=== PATIENT | female | born 1985 | race African-American/Black ===

== ENCOUNTER 2016-12-18 12:59 | Emergency (ER) | payer OTHER ==
[~2016-12-18] VITALS: Ht 162.6 cm; Wt 9.0 kg
[~2016-12-18 12:59] MED LIST: HYDR-1348 PO; HYDROCHLOROTHIAZIDE
[2016-12-18] MEDS ORDERED: KETOROLAC 60MG/2ML VIAL IM ONE (19:15)
[2016-12-18 19:50] VITALS: BP 139/74
== END 2016-12-18 19:50 | disposition home or self-care (01) ==
LOC: ER 12:59
DX: H60.92 Unspecified otitis externa, left ear (principal); I10 Essential (primary) hypertension; J45.909 Unspecified asthma, uncomplicated
CPT/HCPCS: 96372; 99283; J1885

== ENCOUNTER 2018-04-12 13:49 | Emergency (ER) | payer OTHER ==
[~2018-04-12] VITALS: Ht 162.6 cm; Wt 107.0 kg
[2018-04-12 17:05] LABS: BASOPHILS % 0.5 % (0.0-2.0); EOSINOPHILS % 2.7 % (0.0-5.0); HEMATOCRIT. 38.3 % (36.0-48.0); HEMOGLOBIN. 12.9 g/dL (12.0-16.0); LYMPHOCYTES % 43.5 % (20.0-50.0); MEAN CORPUSCULAR HEMOGLOBIN 29.9 pg (28.0-32.0); MEAN CORPUSCULAR VOLUME 88.7 fL (81.0-99.0); MEAN PLATELET VOLUME 9.5 fl (7.4-10.4); MONOCYTES % 6.4 % (2.0-8.0); NEUTROPHILS % 46.9 % (40.0-76.0); PLATELET 238 x1000/uL (130-400); RED BLOOD CELL COUNT 4.33 mill/uL (4.2-5.4); RED CELL DISTRIBUTION WIDTH 13.3 % (11.6-14.6)
[2018-04-12 17:14] LABS: CHLORIDE 108 mEq/L (98-107)
[2018-04-12] MEDS ORDERED: IBUPROFEN 600MG TABLET PO ONE (17:45)
[2018-04-12 17:52] VITALS: BP 139/87
== END 2018-04-12 18:21 | disposition home or self-care (01) ==
LOC: ER 13:49
DX: R07.9 Chest pain, unspecified (principal); R05 Cough; F41.9 Anxiety disorder, unspecified; J45.909 Unspecified asthma, uncomplicated; I10 Essential (primary) hypertension; Z98.890 Other specified postprocedural states
CPT/HCPCS: 36415; 71045; 81025; 93005; 99284

== ENCOUNTER 2019-02-02 18:01 | Emergency (ER) | payer OTHER ==
[~2019-02-02] VITALS: Ht 162.6 cm; Wt 118.0 kg
[2019-02-02 20:45] VITALS: BP 139/81
[2019-02-02] MEDS ORDERED: BISACODYL 10MG SUPP PR ONE (21:00)
[2019-02-02] MEDS ORDERED: POLYETHYLENE GLYCOL 3350 (17GM) 1 DOSE PACK PO ONE (21:00)
== END 2019-02-02 22:29 | disposition home or self-care (01) ==
LOC: ER 18:01
DX: O26.891 Other specified pregnancy related conditions, first trimester (principal); K59.00 Constipation, unspecified; O16.1 Unspecified maternal hypertension, first trimester; Z3A.13 13 weeks gestation of pregnancy; Z98.890 Other specified postprocedural states
CPT/HCPCS: 99282; Z7610

== ENCOUNTER 2019-02-22 04:37 | Emergency (ER) | payer MEDICAID, OTHER ==
[~2019-02-22] VITALS: Ht 162.6 cm; Wt 114.0 kg
[2019-02-22] MEDS ORDERED: ONDANSETRON HCL 4MG/2ML INJ IV NR (05:29)
[2019-02-22] MEDS ORDERED: ACETAMINOPHEN 325MG TABLET PO NR (05:29)
[2019-02-22 05:32] LABS: CLARITY URINE CLEAR (CLEAR); COLOR URINE YELLOW (YELLOW); KETONES URINE 1+ (NEGATIVE); LEUKOCYTE ESTERASE URINE NEGATIVE (NEGATIVE); NITRITE URINE NEGATIVE (NEGATIVE); OCCULT BLOOD URINE NEGATIVE (NEGATIVE); PH URINE 5.5 (4.5-8.0); PROTEIN URINE NEGATIVE (NEGATIVE); SPECIFIC GRAVITY URINE 1.021 (1.005-1.030)
[2019-02-22] MEDS: SODIUM CHLORIDE 0.9% 1,000 ML IV NR ×3 (06:01→07:57)
[2019-02-22 06:04] LABS: BASOPHILS % 0.6 % (0.0-2.0); HEMATOCRIT. 33.8 % (36.0-48.0); HEMOGLOBIN. 11.6 g/dL (12.0-16.0); MEAN CORPUSCULAR HEMOGLOBIN 29.7 pg (28.0-32.0); MEAN CORPUSCULAR VOLUME 86.9 fL (81.0-99.0); MEAN PLATELET VOLUME 9.6 fl (7.4-10.4); MONOCYTES % 7.9 % (2.0-8.0); NEUTROPHILS % 66.5 % (40.0-76.0); PLATELET 236 x1000/uL (130-400); RED BLOOD CELL COUNT 3.89 mill/uL (4.2-5.4); RED CELL DISTRIBUTION WIDTH 13.1 % (11.6-14.6)
[2019-02-22 06:11] LABS: CHLORIDE 108 mEq/L (98-107)
[2019-02-22 08:13] VITALS: BP 145/92
== END 2019-02-22 08:20 | disposition home or self-care (01) ==
LOC: ER 04:37
DX: O26.892 Other specified pregnancy related conditions, second trimester (principal); K59.00 Constipation, unspecified; O21.9 Vomiting of pregnancy, unspecified; O16.2 Unspecified maternal hypertension, second trimester; Z3A.17 17 weeks gestation of pregnancy; Z98.890 Other specified postprocedural states
CPT/HCPCS: 36415; 76705; 76805; 76810; 80053; 81003; 81025; 83690; 84702; 85025; 96361; 96374; 99284; J2405; Z7610

== ENCOUNTER 2019-04-23 22:11 | Observation (INO) | payer MEDICAID ==
[2019-04-24] MEDS ORDERED: PROG100C10 MT (00:14)
[2019-05-15] MEDS ORDERED: ASPI-1497 PO (10:33)
== END 2019-04-24 00:20 | disposition home or self-care (01) ==
LOC: 8 EST LDRP 22:11
PROVIDERS: ADMIT Obstetrics & Gynecology; ATTEND Specialist
DX: O62.9 Abnormality of forces of labor, unspecified (principal); O30.002 Twin pregnancy, unspecified number of placenta and unspecified number of amniotic sacs, second trimester; Z3A.24 24 weeks gestation of pregnancy
CPT/HCPCS: 82962; 99281; G0378

== ENCOUNTER 2019-05-15 10:00 | Observation (INO) | payer MEDICAID ==
[~2019-05-15] VITALS: Ht 162.6 cm; Wt 117.9 kg
[~2019-05-15 10:00] MED LIST changes: +PROG100C10 MT
[2019-05-15] MEDS ORDERED: ASPI-1393 PO (10:33)
[2019-05-15] MEDS ORDERED: DOCU-138 PO (10:33)
== END 2019-05-15 14:15 | disposition home or self-care (01) ==
LOC: 8 EST LDRP 10:00
PROVIDERS: ADMIT Specialist; ATTEND Specialist
DX: O42.912 Preterm premature rupture of membranes, unspecified as to length of time between rupture and onset of labor, second trimester (principal); Z3A.27 27 weeks gestation of pregnancy
CPT/HCPCS: 76805; 76810; 82731; 99281; G0378

== ENCOUNTER → 2019-06-01 | Outpatient (CLI) | payer MEDICAID ==
[~2019-06-01] MED LIST changes: +ASPI-1497 PO; +DOCU-138 PO
== END | disposition home or self-care (01) ==
LOC: CARD 10:07
PROVIDERS: ATTEND Specialist
DX: I49.1 Atrial premature depolarization (principal)
CPT/HCPCS: 93306

== ENCOUNTER 2019-06-23 20:11 | Observation (INO) | payer MEDICAID ==
[~2019-06-23] VITALS: Ht 162.6 cm; Wt 127.0 kg
[2019-06-23] MEDS ORDERED: BETAMETHASONE ACET/BETAMET 30 MG/5 ML VIAL IM NR (20:45)
[2019-06-23 21:10] LABS: BASOPHILS % 0.9 % (0.0-2.0); EOSINOPHILS % 1.2 % (0.0-5.0); HEMATOCRIT. 31.2 % (36.0-48.0); HEMOGLOBIN. 10.1 g/dL (12.0-16.0); LYMPHOCYTES % 34.6 % (20.0-50.0); MEAN CORPUSCULAR VOLUME 83.2 fL (81.0-99.0); MEAN PLATELET VOLUME 9.9 fl (7.4-10.4); MONOCYTES % 9.4 % (2.0-8.0); NEUTROPHILS % 53.9 % (40.0-76.0); PLATELET 242 x1000/uL (130-400); RED BLOOD CELL COUNT 3.74 mill/uL (4.2-5.4); RED CELL DISTRIBUTION WIDTH 14.3 % (11.6-14.6)
[2019-06-23 21:15] LABS: CHLORIDE 110 mEq/L (98-107)
[2019-06-23 21:20] LABS: INR 0.9; PARTIAL THROMBOPLASTIN TIME 25.2 sec (23.4-31.0); PROTHROMBIN TIME 9.4 sec (9.6-11.0)
[2019-06-23 21:20] LABS: *AMPHETAMINES SCREEN URINE NEGATIVE (NEGATIVE); *BARBITURATES SCREEN URINE NEGATIVE (NEGATIVE); *BENZODIAZEPINES SCREEN URINE NEGATIVE (NEGATIVE); *COCAINE SCREEN URINE NEGATIVE (NEGATIVE); METHADONE URINE SCREEN NEGATIVE (NEGATIVE); OPIATES URINE SCREEN NEGATIVE (NEGATIVE)
[2019-06-23 21:21] LABS: CANNABINOID URINE SCREEN NEGATIVE (NEGATIVE); PHENCYCLIDINE URINE SCREEN NEGATIVE (NEGATIVE)
[2019-06-23 22:50] LABS: CLARITY URINE TURBID (CLEAR); COLOR URINE DARK YELLOW (YELLOW); KETONES URINE TRACE (NEGATIVE); LEUKOCYTE ESTERASE URINE NEGATIVE (NEGATIVE); NITRITE URINE NEGATIVE (NEGATIVE); OCCULT BLOOD URINE NEGATIVE (NEGATIVE); PH URINE 5.5 (4.5-8.0); PROTEIN URINE 1+ (NEGATIVE); SPECIFIC GRAVITY URINE 1.046 (1.005-1.030)
[2019-06-23] MEDS ORDERED: ACETAMINOPHEN 500MG TABLET PO PRN (23:15)
[2019-06-23] MEDS ORDERED: LABETALOL HCL 5MG/ML VIAL 20ML IV PRN ×3 (23:15)
[2019-06-23] MEDS ORDERED: HYDRALAZINE 20MG/ML VIAL IV PRN (23:15)
[2019-06-23 23:44] VITALS: BP 161/89
[2019-06-24] MEDS ORDERED: CITRIC ACID/SODIUM CITRATE SOLN 30ML UDC PO NR (00:15)
[2019-06-24] MEDS ORDERED: ONDANSETRON HCL 4MG/2ML INJ IV PRN (00:15)
[2019-06-24] MEDS ORDERED: ACETAMINOPHEN 500MG TABLET PO PRN (00:15)
[2019-06-24] MEDS ORDERED: CEFAZOLIN 2,000 MG in DEXT 5% WATER 100 ML IV SCH (00:15)
[2019-06-24] MEDS: LACTATED RINGERS 1,000 ML IV SCH ×3 (00:45→18:16)
[2019-06-24] MEDS ORDERED: PANTOPRAZOLE 80 MG in SODIUM CHLORIDE 0.9% 100 ML IV SCH (04:30)
[2019-06-24] MEDS: PANTOPRAZOLE SODIUM 40 MG/VIAL IV SCH ×2 (05:07→17:19)
[2019-06-24] MEDS: ACETAMINOPHEN 500MG TABLET PO PRN ×2 (05:28→18:04)
[2019-06-24 07:21] LABS: CHLORIDE 110 mEq/L (98-107); INR 0.9; PARTIAL THROMBOPLASTIN TIME 26.1 sec (23.4-31.0); PROTHROMBIN TIME 9.7 sec (9.6-11.0)
[2019-06-24 07:25] LABS: HEMATOCRIT. 27.9 % (36.0-48.0); HEMOGLOBIN. 9.2 g/dL (12.0-16.0); LYMPHOCYTES % 17.4 % (20.0-50.0); MEAN CORPUSCULAR HEMOGLOBIN 27.2 pg (28.0-32.0); MEAN CORPUSCULAR VOLUME 82.2 fL (81.0-99.0); MEAN PLATELET VOLUME 9.9 fl (7.4-10.4); MONOCYTES % 4.1 % (2.0-8.0); NEUTROPHILS % 78.5 % (40.0-76.0); PLATELET 217 x1000/uL (130-400)
[2019-06-24] MEDS ORDERED: BETAMETHASONE ACET/BETAMET 30 MG/5 ML VIAL IM NR (09:10)
[2019-06-24] MEDS ORDERED: CITRIC ACID/SODIUM CITRATE SOLN 30ML UDC PO PRN (09:30)
[2019-06-24 13:03] LABS: BASOPHILS % 0.1 % (0.0-2.0); HEMATOCRIT. 25.9 % (36.0-48.0); HEMOGLOBIN. 8.4 g/dL (12.0-16.0); LYMPHOCYTES % 16.8 % (20.0-50.0); MEAN CORPUSCULAR HEMOGLOBIN 26.9 pg (28.0-32.0); MEAN CORPUSCULAR VOLUME 82.6 fL (81.0-99.0); MEAN PLATELET VOLUME 9.7 fl (7.4-10.4); MONOCYTES % 3.6 % (2.0-8.0); NEUTROPHILS % 79.5 % (40.0-76.0); PLATELET 195 x1000/uL (130-400); RED BLOOD CELL COUNT 3.14 mill/uL (4.2-5.4); RED CELL DISTRIBUTION WIDTH 14.4 % (11.6-14.6)
[2019-06-24 13:06] LABS: CHLORIDE 109 mEq/L (98-107)
[2019-06-24 13:19] LABS: INR 0.9; PARTIAL THROMBOPLASTIN TIME 25.2 sec (23.4-31.0); PROTHROMBIN TIME 9.7 sec (9.6-11.0)
== END 2019-06-24 22:55 | disposition home or self-care (01) ==
LOC: 8 EST LDRP 20:11 → 8 EST A/PP 06-24 09:23
PROVIDERS: ADMIT Obstetrics & Gynecology; ATTEND Obstetrics & Gynecology
DX: O30.002 Twin pregnancy, unspecified number of placenta and unspecified number of amniotic sacs, second trimester (principal); O62.9 Abnormality of forces of labor, unspecified; Z3A.24 24 weeks gestation of pregnancy
CPT/HCPCS: 36415; 76815; 80053; 80305; 81003; 84156; 84550; 85025; 85384; 85610; 85730; 96365; 96372; 96375; 96376; 99281; C9113; G0378; J0690; J0702; J2405; J3490; J7060; J7120; 96360; 96361; A4315

== ENCOUNTER 2019-06-25 20:51 | Inpatient (IN) | payer MEDICAID ==
[~2019-06-25] VITALS: Ht 162.6 cm; Wt 127.0 kg
[~2019-06-25 20:51] MED LIST changes: -HYDR-1348 PO; -HYDROCHLOROTHIAZIDE
[2019-06-25 22:27] LABS: BASOPHILS % 0.1 % (0.0-2.0); EOSINOPHILS % 0.1 % (0.0-5.0); HEMATOCRIT. 26.1 % (36.0-48.0); HEMOGLOBIN. 8.4 g/dL (12.0-16.0); LYMPHOCYTES % 23.1 % (20.0-50.0); MEAN CORPUSCULAR HEMOGLOBIN 26.6 pg (28.0-32.0); MEAN PLATELET VOLUME 9.5 fl (7.4-10.4); MONOCYTES % 10.6 % (2.0-8.0); NEUTROPHILS % 66.1 % (40.0-76.0); PLATELET 222 x1000/uL (130-400); RED BLOOD CELL COUNT 3.14 mill/uL (4.2-5.4); RED CELL DISTRIBUTION WIDTH 14.4 % (11.6-14.6)
[2019-06-25 22:32] LABS: INR 0.9; PARTIAL THROMBOPLASTIN TIME 22.5 sec (23.4-31.0); PROTHROMBIN TIME 9.2 sec (9.6-11.0)
[2019-06-25 22:33] LABS: CHLORIDE 109 mEq/L (98-107)
[2019-06-25] MEDS ORDERED: HYDRALAZINE 20MG/ML VIAL IV PRN (23:30)
[2019-06-25] MEDS ORDERED: MAGNESIUM 4 G PREMIX 100 ML IV SCH (23:30)
[2019-06-25] MEDS ORDERED: LABETALOL HCL 5MG/ML VIAL 20ML IV PRN ×4 (23:30→23:45)
[2019-06-25] MEDS ORDERED: MAGNESIUM SULFATE 20 GM in DEXT 5% WATER 460 ML IV ONE (23:45)
[2019-06-25] MEDS ORDERED: LACTATED RINGERS 1,000 ML IV SCH (23:45)
[2019-06-26 00:05] VITALS: BP 159/106
[2019-06-26 01:33] LABS: CLARITY URINE CLEAR (CLEAR); COLOR URINE YELLOW (YELLOW); KETONES URINE NEGATIVE (NEGATIVE); LEUKOCYTE ESTERASE URINE TRACE (NEGATIVE); NITRITE URINE NEGATIVE (NEGATIVE); OCCULT BLOOD URINE NEGATIVE (NEGATIVE); PH URINE 6.5 (4.5-8.0); PROTEIN URINE NEGATIVE (NEGATIVE); SPECIFIC GRAVITY URINE 1.008 (1.005-1.030); UROBILINOGEN URINE 0.2 E.U./dL (0.2-1.0)
[2019-06-26 01:45] LABS: *AMPHETAMINES SCREEN URINE NEGATIVE (NEGATIVE)
[2019-06-26 01:46] LABS: *BARBITURATES SCREEN URINE NEGATIVE (NEGATIVE); *BENZODIAZEPINES SCREEN URINE NEGATIVE (NEGATIVE); *COCAINE SCREEN URINE NEGATIVE (NEGATIVE); METHADONE URINE SCREEN NEGATIVE (NEGATIVE); OPIATES URINE SCREEN NEGATIVE (NEGATIVE); PHENCYCLIDINE URINE SCREEN NEGATIVE (NEGATIVE)
[2019-06-26 01:47] LABS: CANNABINOID URINE SCREEN NEGATIVE (NEGATIVE)
[2019-06-26] MEDS ORDERED: ACETAMINOPHEN 500MG TABLET PO NR (02:45)
[2019-06-26 04:24] LABS: BASOPHILS % 0.2 % (0.0-2.0); EOSINOPHILS % 0.1 % (0.0-5.0); HEMATOCRIT. 25.6 % (36.0-48.0); HEMOGLOBIN. 8.3 g/dL (12.0-16.0); LYMPHOCYTES % 25.6 % (20.0-50.0); MEAN CORPUSCULAR HEMOGLOBIN 26.8 pg (28.0-32.0); MEAN PLATELET VOLUME 9.6 fl (7.4-10.4); MONOCYTES % 10.2 % (2.0-8.0); NEUTROPHILS % 63.9 % (40.0-76.0); PLATELET 209 x1000/uL (130-400); RED BLOOD CELL COUNT 3.09 mill/uL (4.2-5.4); RED CELL DISTRIBUTION WIDTH 14.3 % (11.6-14.6)
[2019-06-26 04:33] LABS: CHLORIDE 110 mEq/L (98-107)
[2019-06-26 04:37] LABS: D-DIMER 2.11 mg/L FEU (<0.50); INR 0.9; PARTIAL THROMBOPLASTIN TIME 23.3 sec (23.4-31.0); PROTHROMBIN TIME 9.1 sec (9.6-11.0)
[2019-06-26] MEDS: ACETAMINOPHEN 500MG TABLET PO PRN ×4 (08:55→21:41)
[2019-06-26] MEDS ORDERED: PRENATAL VIT/FE FUMARATE/FA TABLET PO SCH (09:00)
[2019-06-26] MEDS ORDERED: PANTOPRAZOLE SODIUM 40 MG/VIAL IV PRN (09:00)
[2019-06-26] MEDS ORDERED: MAGNESIUM 20 G PREMIX (L & D) 500 ML IV SCH (11:30)
[2019-06-26] MEDS ORDERED: MAGNESIUM SULFATE 20 GM in DEXT 5% WATER 460 ML IV SCH (12:00)
[2019-06-26] MEDS: DEXT 5%/LACTATED RINGERS 1,000 ML IV SCH (17:15)
[2019-06-26] MEDS: DOCUSATE SODIUM 100MG CAPSULE PO SCH (17:38)
[2019-06-26] MEDS: FERROUS SULFATE 325MG TABLET PO SCH (17:39)
[2019-06-27] MEDS: DEXT 5%/LACTATED RINGERS 1,000 ML IV SCH (02:13)
[2019-06-27] MEDS: FERROUS SULFATE 325MG TABLET PO SCH (02:15)
[2019-06-27] MEDS: ACETAMINOPHEN 500MG TABLET PO PRN (04:41)
[2019-06-27] MEDS: DOCUSATE SODIUM 100MG CAPSULE PO SCH (05:24)
== END 2019-06-27 08:10 | disposition home or self-care (01) | DRG 566 ==
LOC: OBSVTOIN 20:51 → 8 EST LDRP 20:51 → 8 EST A/PP 06-26 03:30 → 8 EST LDRP 06-26 08:32
PROVIDERS: ADMIT Obstetrics & Gynecology; ATTEND Obstetrics & Gynecology
DX: O99.013 Anemia complicating pregnancy, third trimester (principal); O16.3 Unspecified maternal hypertension, third trimester; E66.9 Obesity, unspecified; D64.9 Anemia, unspecified; O99.213 Obesity complicating pregnancy, third trimester; O30.003 Twin pregnancy, unspecified number of placenta and unspecified number of amniotic sacs, third trimester; Z3A.33 33 weeks gestation of pregnancy; Z79.899 Other long term (current) drug therapy; Z79.82 Long term (current) use of aspirin; Z91.040 Latex allergy status; Z98.891 History of uterine scar from previous surgery
CPT/HCPCS: 36415; 76805; 76810; 76818; 80053; 80305; 81003; 83735; 84550; 85025; 85379; 85384; 86592; 86703; 86762; 86850; 86900; 87340; 96372; 99281; G0378; J3475; J3490; J7060; J7120

== ENCOUNTER 2019-06-28 16:32 | Inpatient (IN) | payer MEDICAID ==
[~2019-06-28] VITALS: Ht 162.6 cm; Wt 136.1 kg
[2019-06-28] MEDS ORDERED: DEXT 5%/LR + PITOCIN 20UNITS/L 1,000 ML IV SCH ×2 (17:00→20:34)
[2019-06-28] MEDS ORDERED: CARBOPROST TROMETHAMINE 250 MCG/ML AMPUL IM PRN (17:00)
[2019-06-28] MEDS ORDERED: MISOPROSTOL 100MCG TABLET VG SCH (17:00)
[2019-06-28] MEDS ORDERED: NALOXONE HCL 0.4 MG/ML 1ML VIAL IM PRN (17:00)
[2019-06-28] MEDS ORDERED: PANTOPRAZOLE SODIUM 40 MG/VIAL IV NR (17:15)
[2019-06-28] MEDS ORDERED: FUROSEMIDE 20MG/2ML VIAL IVP NR (17:30)
[2019-06-28] MEDS: LACTATED RINGERS 1,000 ML IV SCH (17:34)
[2019-06-28] MEDS ORDERED: CITRIC ACID/SODIUM CITRATE SOLN 30ML UDC PO NR (17:45)
[2019-06-28] MEDS ORDERED: MORPHINE SULFATE/PF 1MG/ML 10ML AMP ONE (18:00)
[2019-06-28] MEDS ORDERED: FENTANYL CITRATE/PF 50MCG/ML 2ML VIAL ONE (18:00)
[2019-06-28 18:01] LABS: CLARITY URINE CLOUDY (CLEAR); COLOR URINE YELLOW (YELLOW); KETONES URINE NEGATIVE (NEGATIVE); LEUKOCYTE ESTERASE URINE 3+ (NEGATIVE); NITRITE URINE NEGATIVE (NEGATIVE); OCCULT BLOOD URINE NEGATIVE (NEGATIVE); PH URINE 6.5 (4.5-8.0); PROTEIN URINE 1+ (NEGATIVE); UROBILINOGEN URINE 0.2 E.U./dL (0.2-1.0)
[2019-06-28] MEDS ORDERED: ONDANSETRON HCL 4MG/2ML INJ ONE (18:01)
[2019-06-28] MEDS ORDERED: METOCLOPRAMIDE HCL 10MG/2ML VIAL ONE (18:01)
[2019-06-28] MEDS ORDERED: CEFAZOLIN SODIUM 1000MG/VIAL ONE (18:01)
[2019-06-28] MEDS ORDERED: EPHEDRINE SULFATE 50MG/ML VIAL ONE (18:01)
[2019-06-28] MEDS ORDERED: OXYTOCIN 10 UNITS/ML 1ML ONE (18:01)
[2019-06-28] MEDS ORDERED: GLYCOPYRROLATE 0.2 MG/ML 2ML VIAL ONE (18:01)
[2019-06-28] MEDS ORDERED: SODIUM CHLORIDE 0.9% 10ML VIAL ONE (18:07)
[2019-06-28 18:08] LABS: BASOPHILS % 0.3 % (0.0-2.0); EOSINOPHILS % 1.2 % (0.0-5.0); HEMATOCRIT. 27.4 % (36.0-48.0); HEMOGLOBIN. 8.8 g/dL (12.0-16.0); LYMPHOCYTES % 26.8 % (20.0-50.0); MEAN CORPUSCULAR HEMOGLOBIN 26.9 pg (28.0-32.0); MEAN CORPUSCULAR VOLUME 83.4 fL (81.0-99.0); MEAN PLATELET VOLUME 9.4 fl (7.4-10.4); MONOCYTES % 10.2 % (2.0-8.0); NEUTROPHILS % 61.5 % (40.0-76.0); PLATELET 224 x1000/uL (130-400); RED BLOOD CELL COUNT 3.29 mill/uL (4.2-5.4); RED CELL DISTRIBUTION WIDTH 14.6 % (11.6-14.6)
[2019-06-28 18:09] LABS: CHLORIDE 112 mEq/L (98-107)
[2019-06-28 18:16] LABS: INR 0.9; PARTIAL THROMBOPLASTIN TIME 26.1 sec (23.4-31.0); PROTHROMBIN TIME 9.6 sec (9.6-11.0)
[2019-06-28 18:16] LABS: *AMPHETAMINES SCREEN URINE NEGATIVE (NEGATIVE); *BARBITURATES SCREEN URINE NEGATIVE (NEGATIVE); *BENZODIAZEPINES SCREEN URINE NEGATIVE (NEGATIVE); *COCAINE SCREEN URINE NEGATIVE (NEGATIVE); METHADONE URINE SCREEN NEGATIVE (NEGATIVE); OPIATES URINE SCREEN NEGATIVE (NEGATIVE)
[2019-06-28 18:17] LABS: CANNABINOID URINE SCREEN NEGATIVE (NEGATIVE); PHENCYCLIDINE URINE SCREEN NEGATIVE (NEGATIVE)
[2019-06-28] MEDS ORDERED: LABETALOL 5MG/ML SYR 20 MG/4 ML SYRINGE IV NR (18:30)
[2019-06-28] MEDS ORDERED: DIPHENHYDRAMINE 50MG/ML VIAL ONE (19:40)
[2019-06-28] MEDS ORDERED: KETOROLAC 60MG/2ML VIAL IM ONE (19:42)
[2019-06-28] MEDS ORDERED: LANOLIN OINT 7GM TUBE TOP PRN (20:45)
[2019-06-28] MEDS ORDERED: HYDROCODONE/ACETAMINOPHEN 5/325MG TABLET PO PRN ×2 (20:45)
[2019-06-28] MEDS ORDERED: RHO(D) IMMUNE GLOBULIN 300 MCG/SYR IM PRN (20:45)
[2019-06-28] MEDS ORDERED: ONDANSETRON HCL 4MG/2ML INJ IV PRN (20:45)
[2019-06-28] MEDS ORDERED: NALOXONE HCL 0.4 MG/ML 1ML VIAL IV PRN (21:00)
[2019-06-28] MEDS ORDERED: DIPHENHYDRAMINE 50MG/ML VIAL IV PRN (21:00)
[2019-06-28] MEDS ORDERED: BUTORPHANOL TARTRATE 2 MG/ML VIAL IV PRN (21:00)
[2019-06-28] MEDS ORDERED: DIPHENHYDRAMINE 25MG CAPSULE PO PRN (21:00)
[2019-06-29] VITALS (7 sets, daily range): BP systolic 132–155; BP diastolic 71–107
[2019-06-29 07:29] LABS: BASOPHILS % 0.4 % (0.0-2.0); EOSINOPHILS % 0.6 % (0.0-5.0); HEMATOCRIT. 24.2 % (36.0-48.0); HEMOGLOBIN. 7.9 g/dL (12.0-16.0); LYMPHOCYTES % 23.7 % (20.0-50.0); MEAN CORPUSCULAR HEMOGLOBIN 27.3 pg (28.0-32.0); MEAN CORPUSCULAR VOLUME 83.5 fL (81.0-99.0); MEAN PLATELET VOLUME 9.7 fl (7.4-10.4); MONOCYTES % 10.5 % (2.0-8.0); NEUTROPHILS % 64.8 % (40.0-76.0); PLATELET 193 x1000/uL (130-400); RED CELL DISTRIBUTION WIDTH 14.3 % (11.6-14.6)
[2019-06-29] MEDS: KETOROLAC 30MG/ML VIAL IV SCH ×2 (08:40→19:50)
[2019-06-29] MEDS: PRENATAL VIT/FE FUMARATE/FA TABLET PO SCH (08:40)
[2019-06-29] MEDS ORDERED: LABETALOL HCL 100MG TABLET PO SCH (12:45)
[2019-06-29] MEDS: LACTATED RINGERS 1,000 ML IV SCH (13:15)
[2019-06-29] MEDS: DOCUSATE SODIUM 100MG CAPSULE PO SCH (19:53)
[2019-06-30] VITALS: BP 148/80
[2019-06-30] MEDS: ACETAMINOPHEN WITH CODEINE 300/30MG TABLET PO PRN ×3 (02:28→18:21)
[2019-06-30] MEDS: LABETALOL HCL 200MG TABLET PO SCH ×2 (02:29→13:53)
[2019-06-30 04:00] VITALS: BP 134/88
[2019-06-30] MEDS ORDERED: BISACODYL 10MG SUPP PR PRN (04:00)
[2019-06-30] MEDS: IBUPROFEN 400MG TABLET PO PRN ×2 (05:02→13:50)
[2019-06-30] MEDS: PRENATAL VIT/FE FUMARATE/FA TABLET PO SCH (08:03)
[2019-06-30 08:59] VITALS: BP 152/77
[2019-06-30] MEDS ORDERED: FUROSEMIDE 20MG TABLET PO SCH (10:30)
[2019-06-30 13:45] VITALS: BP 158/91
[2019-06-30 16:00] VITALS: BP 100/79
[2019-06-30 19:30] VITALS: BP 155/90
[2019-06-30] MEDS: NEOMYCIN/BACITRACIN/POLYMYXIN OINT 14GM TOP SCH (21:00)
[2019-06-30] MEDS: DOCUSATE SODIUM 100MG CAPSULE PO SCH (21:03)
[2019-07-01] VITALS: BP 144/89
[2019-07-01] MEDS: ACETAMINOPHEN WITH CODEINE 300/30MG TABLET PO PRN (02:29)
[2019-07-01] MEDS: LABETALOL HCL 200MG TABLET PO SCH (02:34)
[2019-07-01 04:00] VITALS: BP 141/74
[2019-07-01] MEDS ORDERED: FERR325T6 MT (07:18)
[2019-07-01] MEDS ORDERED: IBUP-2028 PO (07:18)
[2019-07-01] MEDS ORDERED: LABE200T28 PO (07:18)
[2019-07-01 07:34] VITALS: BP 131/81
[2019-07-01] MEDS: IBUPROFEN 400MG TABLET PO PRN (07:58)
[2019-07-01] MEDS: PRENATAL VIT/FE FUMARATE/FA TABLET PO SCH (07:58)
[2019-07-01] MEDS: NEOMYCIN/BACITRACIN/POLYMYXIN OINT 14GM TOP SCH (08:01)
== END 2019-07-01 12:00 | disposition home or self-care (01) | DRG 540 ==
LOC: OBSVTOIN 16:32 → 8 EST LDRP 16:32 → 8EST 23:46 → 8 EST LDRP 06-29 00:09 → 8EST 06-29 00:15
PROVIDERS: ADMIT Obstetrics & Gynecology; ATTEND Obstetrics & Gynecology
PROC: 10D00Z1 Extraction of Products of Conception, Low, Open Approach (ICD-10-PCS; principal; 2019-06-28)
DX: O13.4 Gestational [pregnancy-induced] hypertension without significant proteinuria, complicating childbirth (principal); Z37.2 Twins, both liveborn; O99.214 Obesity complicating childbirth; E66.9 Obesity, unspecified; O30.003 Twin pregnancy, unspecified number of placenta and unspecified number of amniotic sacs, third trimester; O34.211 Maternal care for low transverse scar from previous cesarean delivery; D64.9 Anemia, unspecified; O99.02 Anemia complicating childbirth; K66.0 Peritoneal adhesions (postprocedural) (postinfection); O99.62 Diseases of the digestive system complicating childbirth; Z3A.34 34 weeks gestation of pregnancy
CPT/HCPCS: 36415; 71045; 80053; 80305; 81003; 84550; 85025; 85384; 86592; 86703; 86762; 86850; 86900; 88307; 93005; 99281; C9113; J0690; J1200; J1885; J1940; J2274; J2405; J2590; J2765; J3010; J3490; J7120

== ENCOUNTER 2021-03-12 23:45 | Emergency (ER) | payer MEDICAID ==
[~2021-03-12] VITALS: Ht 162.6 cm; Wt 118.0 kg
[~2021-03-12 23:45] MED LIST changes: -ASPI-1497 PO; +FERR325T6 MT; +IBUP-2028 PO; +LABE200T9 PO; -PROG100C10 MT
[2021-03-13] MEDS ORDERED: IBUP-2029 MT (00:48)
[2021-03-13 00:51] VITALS: BP 156/93
[2021-03-13] MEDS ORDERED: IBUPROFEN 800MG TABLET PO ONE (01:00)
== END 2021-03-13 01:05 | disposition home or self-care (01) ==
LOC: ER 23:45
DX: R59.0 Localized enlarged lymph nodes (principal); H92.03 Otalgia, bilateral; R07.0 Pain in throat; I10 Essential (primary) hypertension; J45.909 Unspecified asthma, uncomplicated; Z98.890 Other specified postprocedural states; Z91.040 Latex allergy status
CPT/HCPCS: 81025; 99282